=== PATIENT | male | born 1965 | race Caucasian/White ===

== ENCOUNTER 2016-07-27 11:39 | Day surgery (SDC) | payer BC ==
[2016-07-23 09:35] VITALS: BMI 35.9
[~2016-07-27 11:39] MED LIST: LIDOCAINE 1% 20 ML VIAL (10MG/ML) FOR IV START INTRADERMA PRN
[2016-07-27] MEDS ORDERED: LIDOCAINE 1% 20 ML VIAL (10MG/ML) FOR IV START INTRADERMA ONE (12:22)
[2016-07-27] MEDS: LACTATED RINGERS 1,000 ML IV SCH ×2 (12:22→12:42)
[2016-07-27 12:24] VITALS: RESP 18; TEMP 98.5
[2016-07-27] MEDS ORDERED: PROPOFOL 10 MG/ML 20 ML VIAL IV ONE (12:44)
[2016-07-27] MEDS ORDERED: LIDOCAINE 1% INJ 10MG/ML (20 ML MDV) ONE (12:44)
[2016-07-27 13:44] VITALS: BP 113/67; PULSE 74
--- NOTE | 2016-07-27 13:55 | P.PCN ---
Date of Procedure: 07/27/16 Procedure(s) Performed: Procedure: Total colonoscopy. Preoperative diagnosis: Screening for neoplasia. Postoperative diagnosis: Diverticulosis with no evidence of acute diverticulitis , strictures, polyps or cancer. Preparation: HalfLytely prep. Sedation: Was provided by anesthesia. Brief clinical history: The patient is a 50-year-old male who is referred for this evaluation for screening for neoplasia. He had a bout of diverticulitis around 1 year ago. At this time, he has no abdominal complaints, bleeding or anemia. No family history of colon cancer. This would be his first colonoscopy. Procedure: With the patient on his left lateral decubitus position and after informed consent and adequate sedation, the perianal area was inspected and it did not show any fissures or fistulas. There were no masses felt on digital rectal examination. The Olympus CFQ 160L video colonoscope was then inserted in the rectum in the usual fashion and advanced to the cecum. There were multiple diverticular orifices seen scattered along the length of the bowel mostly on the left side and sigmoid with no evidence of acute diverticulitis or strictures. The mucosa appeared healthy with occasional small areas of submucosal hemorrhage in the vicinity of diverticular orifices that could indicate a prior bout of diverticulitis. No polyps or tumors were seen. I retroflexed the endoscope in the rectum before the endoscope was withdrawn. The patient tolerated the procedure well. Plan: The patient was reassured. Discussed dietary measures. In the absence of family history of colon cancer or finding of polyps today, I recommended repeat exam in 10 years. He will follow up with you as planned.
== END 2016-07-27 14:20 | disposition home or self-care (01) ==
LOC: ORWHC2ENDO 11:39
DX: Z12.11 Encounter for screening for malignant neoplasm of colon (principal); K57.30 Diverticulosis of large intestine without perforation or abscess without bleeding; I10 Essential (primary) hypertension; E78.5 Hyperlipidemia, unspecified; Z79.82 Long term (current) use of aspirin; Z79.899 Other long term (current) drug therapy; Z87.891 Personal history of nicotine dependence
CPT/HCPCS: J2001; J2704; G0121

== ENCOUNTER → 2016-09-25 | Outpatient (CLI) | payer BC ==
[2016-09-25 08:32] LABS: ALT 56 U/L (21-72); AST 41 U/L (17-59); Alkaline Phosphatase 48 U/L (38-126); Anion Gap 6 mmol/L; Blood Urea Nitrogen 12 mg/dL (9-20); Calcium 9.7 mg/dL (8.4-10.2); Carbon Dioxide 30 mmol/L (22-30); Chloride 108 mmol/L (98-107); Cholesterol 146 mg/dL (<200); Creatine Kinase 420 U/L (55-170); Glucose 89 mg/dL (74-99); HDL Cholesterol 51 mg/dL (40-60); Non-African American GFR(MDRD) >60 (>60 ml/min/1.73 sqM); Potassium 4.6 mmol/L (3.5-5.1); Sodium 144 mmol/L (137-145); Total Bilirubin 1.4 mg/dL (0.2-1.3); Total Protein 7.5 g/dL (6.3-8.2); Triglycerides 74 mg/dL (<150)
== END | disposition home or self-care (01) ==
LOC: LABWHC1 07:31
PROVIDERS: ATTEND Internal Medicine Interventional Cardiology
DX: E78.2 Mixed hyperlipidemia (principal)
CPT/HCPCS: 36415; 80053; 80061; 82550

== ENCOUNTER → 2017-02-16 | Outpatient (CLI) | payer BC ==
[2017-02-16 08:18] LABS: ALT 63 U/L (21-72); AST 42 U/L (17-59); Alkaline Phosphatase 47 U/L (38-126); Anion Gap 10 mmol/L; Blood Urea Nitrogen 16 mg/dL (9-20); Calcium 9.6 mg/dL (8.4-10.2); Carbon Dioxide 28 mmol/L (22-30); Chloride 103 mmol/L (98-107); Cholesterol 141 mg/dL (<200); Glucose 99 mg/dL (74-99); HDL Cholesterol 50 mg/dL (40-60); Non-African American GFR(MDRD) >60 (>60 ml/min/1.73 sqM); Potassium 4.5 mmol/L (3.5-5.1); Sodium 141 mmol/L (137-145); Total Bilirubin 0.4 mg/dL (0.2-1.3)
== END | disposition home or self-care (01) ==
LOC: LABWHC1 07:10
PROVIDERS: ATTEND Internal Medicine Interventional Cardiology
DX: E78.2 Mixed hyperlipidemia (principal); I10 Essential (primary) hypertension
CPT/HCPCS: 36415; 80053; 80061; 84443

== ENCOUNTER → 2017-08-26 | Outpatient (CLI) | payer BC ==
[2017-08-26 09:03] LABS: ALT 61 U/L (21-72); AST 42 U/L (17-59); Cholesterol 163 mg/dL (<200); HDL Cholesterol 52 mg/dL (40-60); LDL Cholesterol,Calculated 89 mg/dL (0-99); Triglycerides 108 mg/dL (<150)
== END | disposition home or self-care (01) ==
LOC: LABWHC1 08:27
PROVIDERS: ATTEND Internal Medicine Interventional Cardiology
DX: E78.2 Mixed hyperlipidemia (principal)
CPT/HCPCS: 36415; 80061; 84450; 84460

== ENCOUNTER → 2018-03-04 | Outpatient (CLI) | payer BC ==
[2018-03-04 17:00] LABS: Albumin 4.7 g/dL (3.80-4.90); Albumin/Globulin Ratio 2.61 (1.20-2.10); Anion Gap 6.9 mmol/L (4.00-12.00); Calcium 9.4 mg/dL (8.7-10.3); Carbon Dioxide 27.1 mmol/L (21.6-31.8); Globulin 1.8 g/dL (2.1-3.7); Potassium 4.5 mmol/L (3.5-5.5); Total Bilirubin 0.6 mg/dL (0.3-1.2); Total Protein 6.5 g/dL (6.2-8.2)
== END | disposition home or self-care (01) ==
LOC: LABWHC1 08:26
PROVIDERS: ATTEND Internal Medicine Interventional Cardiology
DX: E78.2 Mixed hyperlipidemia (principal)
CPT/HCPCS: 36415; 80053; 80061

== ENCOUNTER → 2018-06-13 | Outpatient (CLI) | payer BC ==
--- NOTE | 2018-06-14 05:45 | CONS ---
CONSULTATION REASON FOR CONSULT: Sleep apnea 52-year-old male patient with suspected obstructive sleep apnea. For that reason, he was referred to me. I know this patient's mother who used to be one of my patients and she has been diagnosed with scleroderma and lung cancer, around 2 years ago. She did not have any sleep apnea. This patient is obese. He has a BMI of 42, and he feels tired and sleepy all the time. His current Fremont score is at 11. He has gained weight in the order of 40 pounds over the past 10 years. He snores and he stops breathing and this has been reported by family members. He has been tired and sleepy for the past 4 years. At times, he has woken up panicking and gasping for air with tachycardia. Note that he has been diagnosed having palpitation and tachycardia. There is questionable history of paroxysmal atrial fibrillation. Yet his current rhythm is sinus. He has hypertension, hyperlipidemia as comorbid conditions. He goes to bed around 10 o'clock. Wakes up at 5 a.m. in the morning. He feels tired and sleepy during the day. He is a nose breather. He wakes up with dry mouth. His sleep is fragmented and wakes up a few times in the middle of the night to use the bathroom. No sleep paralysis. No hallucinations. No cataplexy. PAST MEDICAL HISTORY: 1. Palpitations, tachycardia and questionable history of paroxysmal atrial fibrillation. Although I am not certain. 2. Hypertension. 3. Hyperlipidemia. 4. Obesity. PAST SURGICAL HISTORY: Includes rotator cuff surgery. Cyst removed from the lower back and colonoscopy. DRUG ALLERGIES: Not known. OUTPATIENT MEDICATION LIST: Includes: 1. Lisinopril 10 mg p.o. daily. Hydrochlorothiazide 25 mg p.o. daily. Atorvastatin 5 mg p.o. daily. 2. Oren aspirin 325 mg p.o. daily. SOCIAL HISTORY: The patient is a nonsmoker, no history of alcohol, no history of IV drugs. FAMILY HISTORY: Negative for sleep apnea. Positive for scleroderma. REVIEW OF SYSTEMS: The patient has issues with breathing. 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 He quit smoking 12 years ago and is currently a nonsmoker. Never the less, on and off, he feels some cough and congestion. He has had a few bouts of pneumonias. He is requesting a pulmonary consultation at later stage. No angina. No chest pain. No heartburn. No nausea or vomiting. There is chronic anxiety and some degree of depression. No claustrophobia. No issues with memory and concentration. He is not falling asleep during day-to-day activities. No active palpitation for now although he has had it in the past. No grinding of the teeth. PHYSICAL EXAMINATION: BP is 144/93, pulse 87, respirations 16, temperature 98.4, saturation 97% on room air. Weight is 284. Height is 5 feet 9 inches. Neck size is 18 and quarter of an inch. BMI is 42.0. General appearance: Calm, comfortable. Head atraumatic, normocephalic. NECK: Supple. No JVD. No goiter or neck masses. Mallampati class IV. LUNGS: Clear to auscultation. HEART: Sounds regular rate and rhythm. Normal S1, S2. No S3. No murmurs. ABDOMEN: Soft, nontender. No organomegaly. EXTREMITIES: No edema. No cyanosis or clubbing. Neurologically: He is alert and oriented x3. No focal neurological deficits. PSYCHIATRIC: Negative for anxiety or depression at this point in time. IMPRESSION: 1. Hypersomnia under investigation Fremont score is 11. The patient snores and has witnessed apneas. Rule out underlying obstructive sleep apnea. 2. Obesity with a BMI of 42. 3. Hypertension. 4. Hyperlipidemia. PLAN: 1. Encourage weight loss. 2. Implement good sleep hygiene measures. 3. Proceed with a sleep study looking for any significant sleep breathing disorder. 4. The patient will see me back in followup at the [facility] to discuss the results of the sleep study and at the same time have a pulmonary evaluation knowing that he has some shortness of breath and recurrent bouts of pneumonias suspecting underlying asthma/COPD. MMODL / IJN: [id number] /
== END | disposition home or self-care (01) ==
LOC: SLEEP 15:33
PROVIDERS: ATTEND Internal Medicine Critical Care Medicine
DX: G47.10 Hypersomnia, unspecified (principal); E66.9 Obesity, unspecified; I10 Essential (primary) hypertension; E78.5 Hyperlipidemia, unspecified; Z68.41 Body mass index [BMI] 40.0-44.9, adult; Z79.899 Other long term (current) drug therapy; Z79.82 Long term (current) use of aspirin
CPT/HCPCS: 99211

== ENCOUNTER → 2018-09-02 | Outpatient (CLI) | payer BC ==
[2018-09-02 17:33] LABS: Albumin 4.8 g/dL (3.80-4.90); Albumin/Globulin Ratio 2.4 (1.60-3.17); Anion Gap 4.8 mmol/L (4.00-12.00); Calcium 9.8 mg/dL (8.7-10.3); Carbon Dioxide 28.2 mmol/L (21.6-31.8); Potassium 4.4 mmol/L (3.5-5.5); Total Bilirubin 0.8 mg/dL (0.2-1.2); Total Protein 6.8 g/dL (6.2-8.2)
== END | disposition home or self-care (01) ==
LOC: LABWHC1 08:38
PROVIDERS: ATTEND Internal Medicine Interventional Cardiology
DX: E78.2 Mixed hyperlipidemia (principal)
CPT/HCPCS: 36415; 80053; 80061

== ENCOUNTER → 2019-03-03 | Outpatient (CLI) | payer BC ==
[2019-03-03 17:44] LABS: Chol/HDL Ratio 3.24; LDL Cholesterol,Calculated 82.6 mg/dL (0.0-131.0); VLDL Calculation 18.4 mg/dL (5.00-40.00)
== END | disposition home or self-care (01) ==
LOC: LABWHC1 08:18
PROVIDERS: ATTEND Internal Medicine Interventional Cardiology
DX: E78.2 Mixed hyperlipidemia (principal)
CPT/HCPCS: 36415; 80061; 84450; 84460

== ENCOUNTER → 2019-11-06 | Outpatient (CLI) | payer BC ==
[2019-11-06 13:14] LABS: African American GFR (CKD) 89.6 (60.0-200.0); Albumin 4.6 g/dL (3.80-4.90); Albumin/Globulin Ratio 2.19 (1.60-3.17); Anion Gap 11.4 mmol/L (4.00-12.00); BUN/Creat Ratio 18.18 Ratio (12.00-20.00); Calcium 9.7 mg/dL (8.7-10.3); Carbon Dioxide 27.6 mmol/L (21.6-31.8); Chol/HDL Ratio 3.21; Globulin 2.1 g/dL (1.6-3.3); Non-African American GFR(CKD) 77.3 (60.0-200.0); Potassium 4.2 mmol/L (3.5-5.5); Total Bilirubin 0.9 mg/dL (0.2-1.2); Total Protein 6.7 g/dL (6.2-8.2)
== END | disposition home or self-care (01) ==
LOC: LABWHC1 07:22
PROVIDERS: ATTEND Nurse Practitioner Adult Health
DX: E78.2 Mixed hyperlipidemia (principal); I10 Essential (primary) hypertension
CPT/HCPCS: 36415; 80053; 80061

== ENCOUNTER → 2020-06-13 | Outpatient (CLI) | payer BC ==
[2020-06-13 15:46] LABS: African American GFR (CKD) 99.8 (60.0-200.0); Albumin 4.7 g/dL (3.80-4.90); Albumin/Globulin Ratio 2.76 (1.60-3.17); Anion Gap 5.4 mmol/L (4.00-12.00); Calcium 9.3 mg/dL (8.7-10.3); Carbon Dioxide 28.6 mmol/L (21.6-31.8); Chol/HDL Ratio 3.32; Globulin 1.7 g/dL (1.6-3.3); LDL Cholesterol,Calculated 87.8 mg/dL (0.0-131.0); Non-African American GFR(CKD) 86.2 (60.0-200.0); Potassium 4.2 mmol/L (3.5-5.5); Total Bilirubin 0.7 mg/dL (0.3-1.2); Total Protein 6.4 g/dL (6.2-8.2); VLDL Calculation 21.2 mg/dL (5.00-40.00)
== END | disposition home or self-care (01) ==
LOC: LABWHC1 08:00
PROVIDERS: ATTEND Internal Medicine Interventional Cardiology
DX: E78.2 Mixed hyperlipidemia (principal)
CPT/HCPCS: 36415; 80053; 80061

== ENCOUNTER → 2021-01-10 | Outpatient (CLI) | payer BC ==
[2021-01-10 20:11] LABS: African American GFR (CKD) 112.6 (60.0-200.0); Albumin 4.7 g/dL (3.80-4.90); Albumin/Globulin Ratio 2.04 (1.60-3.17); Anion Gap 12.2 mmol/L (4.00-12.00); BUN/Creat Ratio 18.89 Ratio (12.00-20.00); Calcium 9.8 mg/dL (8.7-10.3); Carbon Dioxide 24.8 mmol/L (21.6-31.8); Chol/HDL Ratio 2.76; Globulin 2.3 g/dL (1.6-3.3); LDL Cholesterol,Calculated 77.8 mg/dL (0.0-131.0); Non-African American GFR(CKD) 97.2 (60.0-200.0); Potassium 4.1 mmol/L (3.5-5.5); Total Bilirubin 0.9 mg/dL (0.2-1.2); VLDL Calculation 19.2 mg/dL (5.00-40.00)
== END | disposition home or self-care (01) ==
LOC: LABWHC1 08:19
PROVIDERS: ATTEND Internal Medicine Interventional Cardiology
DX: E78.2 Mixed hyperlipidemia (principal)
CPT/HCPCS: 36415; 80053; 80061

== ENCOUNTER → 2021-06-30 | Outpatient (CLI) | payer BC ==
[2021-06-30 10:47] LABS: ALT 55 U/L (10-49); AST 33 U/L (14-35); Chol/HDL Ratio 3.59 Ratio; LDL Cholesterol,Calculated 73.1 mg/dL (0.0-131.0)
== END | disposition home or self-care (01) ==
LOC: LABWHC1 07:19
PROVIDERS: ATTEND Internal Medicine Interventional Cardiology
DX: E78.2 Mixed hyperlipidemia (principal)
CPT/HCPCS: 36415; 80061; 84450; 84460

== ENCOUNTER → 2022-01-08 | Outpatient (CLI) | payer BC ==
[2022-01-08 11:40] LABS: ALT 47 U/L (10-49); AST 38 U/L (14-35); African American GFR (CKD) 98.5 (60.0-200.0); Albumin 4.6 g/dL (3.8-4.9); Albumin/Globulin Ratio 1.84 (1.60-3.17); Alkaline Phosphatase 52 U/L (41-126); Blood Urea Nitrogen 12.6 mg/dL (9.0-27.0); Carbon Dioxide 28.4 mmol/L (20.0-27.5); Chloride 103 mmol/L (96-109); Chol/HDL Ratio 3.13 Ratio; Globulin 2.5 g/dL (1.6-3.3); Glucose 96 mg/dL (70-110); LDL Cholesterol,Calculated 81.1 mg/dL (0.0-131.0); Non-African American GFR(CKD) 84.9 (60.0-200.0); Potassium 4.4 mmol/L (3.5-5.5); Sodium 142 mmol/L (135-145); Total Protein 7.1 g/dL (6.2-8.2)
== END | disposition home or self-care (01) ==
LOC: LABWHC1 07:04
PROVIDERS: ATTEND Internal Medicine Interventional Cardiology
DX: E78.2 Mixed hyperlipidemia (principal)
CPT/HCPCS: 36415; 80053; 80061

== ENCOUNTER 2022-01-22 05:42 | Day surgery (SDC) | payer BC ==
[2022-01-21 10:09] VITALS: BMI 41.5
[2022-01-22] MEDS ORDERED: NITROGLYCERIN SL TABS 0.4 MG TAB SUBLINGUAL PRN (05:53)
[2022-01-22] MEDS ORDERED: ALPRAZolam 0.5 MG TAB PO PRN (05:53)
[2022-01-22] MEDS ORDERED: SODIUM CHLORIDE 0.9% 1,000 ML in EMPTY BAG 1 BAG IV SCH (05:53)
[2022-01-22] MEDS ORDERED: ALPRAZolam 0.25 MG TAB PO PRN (05:53)
[2022-01-22] MEDS ORDERED: SODIUM CHLORIDE 0.9% 1,000 ML IV ONE (06:09)
[2022-01-22 06:30] VITALS: RESP 16; TEMP 98.8
[2022-01-22 06:38] LABS: Basophils # (A) 0.1 k/uL (0-0.2); Basophils % (A) 1 %; Eosinophils # (A) 0.3 k/uL (0-0.7); Eosinophils % (A) 4 %; HCT 42.2 % (39.0-53.0); Lymphocytes # (A) 2.1 k/uL (1.0-4.8); Lymphocytes % (A) 24 %; MCH 30.8 pg (25.0-35.0); MCHC 33.2 g/dL (31.0-37.0); MCV 92.9 fL (80.0-100.0); Mean Platelet Volume 8.7; Monocytes # (A) 0.6 k/uL (0-1.0); Monocytes % (A) 6 %; Neutrophils # (A) 5.4 k/uL (1.3-7.7); Neutrophils % (A) 62 %; Platelet Count 216 k/uL (150-450); RBC 4.55 m/uL (4.30-5.90); RDW 12.6 % (11.5-15.5); WBC 8.7 k/uL (3.8-10.6)
[2022-01-22] MEDS ORDERED: ASPIRIN 325 MG TAB PO ONE (07:00)
[2022-01-22] MEDS ORDERED: VERAPAMIL 2.5 MG/ML 2 ML AMP ONE (07:18)
[2022-01-22] MEDS ORDERED: fentaNYL (PF) 50 MCG/ML 2 ML AMP ONE (07:28)
[2022-01-22] MEDS ORDERED: HEPARIN SODIUM 1,000 UN/ML (10ML VL) ONE (07:28)
[2022-01-22] MEDS ORDERED: fentaNYL (PF) 50 MCG/ML 2 ML AMP IVP ONE ×2 (07:35→07:42)
[2022-01-22] MEDS ORDERED: MIDAZOLAM 2 MG/2 ML VIAL IVP ONE (07:40)
[2022-01-22] MEDS ORDERED: LIDOCAINE 1% INJ 10MG/ML (30 ML VIAL-PF) SQ ONE (07:40)
[2022-01-22] MEDS ORDERED: VERAPAMIL SYRINGE (5 MG/10 ML) INTRAARTER ONE (07:42)
[2022-01-22] MEDS ORDERED: HEPARIN SODIUM 1,000 UN/ML (10ML VL) IVP ONE (07:47)
[2022-01-22] MEDS ORDERED: IOPAMIDOL-370 125ML BTL INJ ONE (07:55)
[2022-01-22] MEDS ORDERED: RX INFO: IV CONTRAST WAS GIVEN 1 EACH MISC MISCELLANE PRN (08:10)
[2022-01-22] MEDS ORDERED: SODIUM CHLORIDE 0.9% 1,000 ML IV SCH (08:15)
--- NOTE | 2022-01-22 08:16 | P.CARDCATH ---
Date of Procedure: 01/22/22 Description of Procedure: Cardiac Catheterization: The patient is a 56-year-old male with a known history of hypertension, hyperlipidemia who has been complaining of dyspnea and recently was found to have evidence of cardiomyopathy and ventricular ectopic activity. Recommendations were made regarding cardiac catheterization, the risks and the complications were discussed with the patient who is in full understanding and agreement. Procedure Description: Patient was brought to track repair laborer in fasting semi-sedated state after receiving Fentanyl and Benadryl achieiving moderate conscious sedated state. Using Xylocaine Anesthesia and Seldinger technique, a 6-Senegalese sheath was introduced in the right radial artery . Subsequently, selective coronary angiography was performed using a 5-Senegalese 3.5 bend Ernestine catheter. Multiple views of the coronary artery including hemiaxial views were obtained. The 5-Senegalese pigatail catheter was used to cross the aortic valve and LVEDP was calculated. Left ventriculogram was performed in the PAPPAS view. Following that, catheter and sheath were removed. Hemostasis was obtained with deployment of TR band . There was no immediate complication. Patient was returned to room in stable condition. Of note, the patient received a total of 5000 units of intravenous heparin as well as intra-arterial verapamil. Findings: Left main: This is a large size vessel, bifurcating into LAD and left circumflex, left main has no high-grade stenosis LAD: This is a large size vessel, tapers in the distal third, giving rise to a large proximal diagonal branch, the LAD and its branches have no evidence of high-grade stenosis Left circumflex: This is a codominant vessel, giving rise to 2 obtuse marginal branch, the second one is large in caliber, distally giving rise to a small PDA and PLV that had no evidence of high-grade stenosis RCA: This is a codominant large size vessel bifurcating distally PDA and PLV, the RCA and its branches have no evidence of high-grade stenosis Left Ventriculogram: Performed in the PAPPAS view revealed global hypokinesis, ejection fraction is 40-45%. There was 2+ mitral regurgitation Hemodynamics: There was no gradient across the aortic valve , LVEDP was 20-25 mmHg Conclusion: 1. Normal coronary arteries 2. Codominant system 3. Moderately impaired left ventricle systolic function 4. Elevated LVEDP Recommendations: The patient has nonischemic cardiomyopathy, I have recommended to maximize his medical therapy and depending on his progress further recommendations will be made.. The findings and the recommendations were discussed with the patient and the family and they were in full understanding and agreement. Duration of sedation is 18 minutes.
[2022-01-22] MEDS ORDERED: ATORVASTATIN 10 MG TAB PO SCH (12:00)
[2022-01-22 13:05] VITALS: BP 137/74; PULSE 55
[2022-01-22] MEDS ORDERED: METOPROLOL TARTRATE 25 MG TAB PO SCH (21:00)
[2022-01-23] MEDS ORDERED: hydroCHLOROthiazide 25 MG TAB PO SCH (09:00)
[2022-01-23] MEDS ORDERED: lisinopriL 10 MG TAB PO SCH (09:00)
[2022-01-23] MEDS ORDERED: MULTIVITAMINS, THERA 1 EACH TAB PO SCH (09:00)
== END 2022-01-22 12:01 | disposition home or self-care (01) ==
LOC: CATHCVL 05:42
PROVIDERS: ATTEND Internal Medicine Interventional Cardiology
DX: R07.89 Other chest pain (principal); R06.00 Dyspnea, unspecified; R53.83 Other fatigue; I42.8 Other cardiomyopathies; I10 Essential (primary) hypertension; Z20.822 Contact with and (suspected) exposure to COVID-19; E78.2 Mixed hyperlipidemia; R94.31 Abnormal electrocardiogram [ECG] [EKG]; Z86.16 Personal history of COVID-19; Z98.890 Other specified postprocedural states; Z87.891 Personal history of nicotine dependence; I49.3 Ventricular premature depolarization; Z79.82 Long term (current) use of aspirin; Z79.899 Other long term (current) drug therapy
CPT/HCPCS: 93458; 85025; 87635; C1769 ×2; C1894; J2250; J2001; J3010; J1644; Q9967

== ENCOUNTER → 2022-02-18 | Outpatient (CLI) | payer BC ==
--- NOTE | 2022-02-19 09:00 | CT ---
EXAMINATION TYPE: CT soft tissue neck w con DATE OF EXAM: 02/18/2022 HISTORY: HOARSE VOICE AND POST COVID COMPARISON: NONE CT DLP: 909 mGycm. Automated Exposure Control for Dose Reduction was Utilized. TECHNIQUE: CT scan of the neck is performed with IV Contrast, patient injected with 100 mL of Isovue 300, axial images are obtained, coronal and sagittal reformatted images are reviewed. FINDINGS: Airway: No gross abnormality seen. Parotid/submandibular glands: No gross abnormality seen. Carotid/Vascular Structures: Mild peripheral calcified plaque posterior aspect of proximal bilateral internal carotid arteries. Osseous Structures: Reversal of normal cervical curvature centered at C4 level. Left paracentral disk protrusion effaces anterior thecal sac on axial image 43. Scoliotic curvature is seen on coronal im ages. Other: Scattered subcentimeter lymph nodes throughout the neck bilaterally, no greater then 1cm lymph nodes are seen. IMPRESSION: No suspicious mass or enlarged adenopathy. Patent airway.
== END | disposition home or self-care (01) ==
LOC: RADCTMAIN 16:15
PROVIDERS: ATTEND Internal Medicine Critical Care Medicine
DX: R49.0 Dysphonia (principal)
CPT/HCPCS: 70491; Q9967

== ENCOUNTER → 2022-02-20 | Outpatient (CLI) | payer BC ==
--- NOTE | 2022-02-20 14:29 | CT ---
CT CHEST FOR PULMONARY EMBOLISM. EXAMINATION TYPE: CT angio chest DATE OF EXAM: 02/20/2022 INDICATION: SOB CT DLP: 644.7 mGycm, Automated exposure control for dose reduction was used. CONTRAST: Patient injected with 100cc mL of Isovue 370. COMPARISON: TECHNIQUE: CT of the chest is performed on a spiral scan at 2 mm thick sections. Study is performed with intravenous contrast timed for evaluation for pulmonary embolism. This will limit additional po rtions of the evaluation. 3-D MIP images reconstructed by the technologist are reviewed on the compu ter in the coronal and sagittal planes. FINDINGS: No persistent filling defects are evident to suggest an acute pulmonary embolism. No mediastinal or hilar adenopathy enlarged by CT criteria is evident. The ascending aorta diameter at the level of the main pulmonary artery is 3.6 cm. The main pulmonary artery diameter at the bifur cation is 2.9 cm. Lung windows are clear. Tracheobronchial tree appears clear. Limited CT section through the upper abdomen are unremarkable. IMPRESSIONS: 1. No acute pulmonary embolism. 2. No acute pulmonary process.
== END | disposition home or self-care (01) ==
LOC: RADCTMAIN 08:00
PROVIDERS: ATTEND Internal Medicine Critical Care Medicine
DX: R06.02 Shortness of breath (principal)
CPT/HCPCS: 71275; Q9967

== ENCOUNTER → 2022-05-21 | Outpatient (CLI) | payer BC ==
[2022-05-21 11:38] LABS: ALT 62 U/L (10-49); AST 38 U/L (14-35); African American GFR (CKD) 92.8 (60.0-200.0); Albumin 4.7 g/dL (3.8-4.9); Albumin/Globulin Ratio 2.12 (1.60-3.17); Alkaline Phosphatase 58 U/L (41-126); BUN/Creat Ratio 13.14 Ratio (12.00-20.00); Blood Urea Nitrogen 13.8 mg/dL (9.0-27.0); Calcium 9.9 mg/dL (8.7-10.3); Carbon Dioxide 28.4 mmol/L (20.0-27.5); Chloride 102 mmol/L (96-109); Chol/HDL Ratio 3.44 Ratio; Globulin 2.2 g/dL (1.6-3.3); Glucose 106 mg/dL (70-110); LDL Cholesterol,Calculated 83.1 mg/dL (0.0-131.0); Non-African American GFR(CKD) 80.1 (60.0-200.0); Potassium 4.8 mmol/L (3.5-5.5); Sodium 141 mmol/L (135-145)
== END | disposition home or self-care (01) ==
LOC: LABWHC1 06:59
PROVIDERS: ATTEND Internal Medicine Interventional Cardiology
DX: E78.2 Mixed hyperlipidemia (principal)
CPT/HCPCS: 36415; 80053; 80061

== ENCOUNTER → 2022-10-06 | Outpatient (CLI) | payer BC ==
[2022-10-06 15:54] LABS: ALT 39 U/L (10-49); AST 30 U/L (14-35); Albumin 4.6 d/dL (3.8-4.9); Albumin/Globulin Ratio 2.09 Ratio (1.60-3.17); Alkaline Phosphatase 56 U/L (41-126); BUN/Creat Ratio 13.36 Ratio (12.00-20.00); Blood Urea Nitrogen 14.7 mg/dL (9.0-27.0); Carbon Dioxide 26.8 mmol/L (21.6-31.8); Chloride 105 mmol/L (96-109); Chol/HDL Ratio 3.45 Ratio; Globulin 2.2 d/dL (1.6-3.3); Glucose 99 mg/dL (70-110); LDL Cholesterol,Calculated 81.4 mg/dL (0.0-131.0); Potassium 4.5 mmol/L (3.5-5.5); Sodium 143 mmol/L (135-145); Total Bilirubin 0.4 mg/dL (0.3-1.2); Total Protein 6.8 d/dL (6.2-8.2); VLDL Calculation 19.38 mg/dL (5.00-40.00)
== END | disposition home or self-care (01) ==
LOC: LABWHC1 07:13
PROVIDERS: ATTEND Internal Medicine Interventional Cardiology
DX: E78.2 Mixed hyperlipidemia (principal)
CPT/HCPCS: 36415; 80053; 80061

== ENCOUNTER → 2023-04-15 | Outpatient (CLI) | payer BC ==
[2023-04-15 19:04] LABS: Basophils # (A) 0.11 X 10*3/uL (0.00-0.10); Eosinophils # (A) 0 X 10*3/uL (0.04-0.35); Eosinophils % (A) 0 %; HCT 47.7 % (39.6-50.0); HGB 15.9 g/dL (13.0-17.0); Lymphocytes # (A) 2.36 X 10*3/uL (0.90-5.00); Lymphocytes % (A) 20.6 %; MCH 31.1 pg (27.0-32.0); MCHC 33.3 g/dL (32.0-37.0); MCV 93.3 FL (80.0-97.0); Mean Platelet Volume 10.7 FL (9.5-12.2); Monocytes % (A) 7.9 %; NRBC Per 100 WBC 0 X 10*3/uL (0.00-0.01); Neutrophils # (A) 7.95 X 10*3/uL (1.80-7.70); Neutrophils % (A) 69.5 %; Platelet Count 244 X 10*3/uL (140-440); RBC 5.11 X 10*6/uL (4.40-5.60); WBC 11.44 X 10*3/uL (4.50-10.00)
[2023-04-15 19:15] LABS: Immunoglobulin E 26.5 IU/mL (0.00-114.00)
[2023-04-15 19:29] LABS: Immunoglobulin M 60.5 mg/dL (40.0-280.0)
== END | disposition home or self-care (01) ==
LOC: LABWHC1 12:20
PROVIDERS: ATTEND Otolaryngology
DX: D84.9 Immunodeficiency, unspecified (principal); R53.83 Other fatigue
CPT/HCPCS: 36415; 82784; 82785; 85025

== ENCOUNTER → 2023-05-04 | Outpatient (CLI) | payer BC ==
[2023-05-04 15:45] LABS: Basophils # (A) 0.09 X 10*3/uL (0.00-0.10); Basophils % (A) 0.7 %; Eosinophils # (A) 0 X 10*3/uL (0.04-0.35); Eosinophils % (A) 0 %; HCT 45.4 % (39.6-50.0); HGB 15.3 g/dL (13.0-17.0); Lymphocytes # (A) 1.34 X 10*3/uL (0.90-5.00); Lymphocytes % (A) 9.8 %; MCH 31.5 pg (27.0-32.0); MCHC 33.7 g/dL (32.0-37.0); MCV 93.6 FL (80.0-97.0); Mean Platelet Volume 11.2 FL (9.5-12.2); Monocytes # (A) 0.52 X 10*3/uL (0.20-1.00); Monocytes % (A) 3.8 %; NRBC Per 100 WBC 0 X 10*3/uL (0.00-0.01); Neutrophils # (A) 11.64 X 10*3/uL (1.80-7.70); Neutrophils % (A) 84.8 %; Platelet Count 200 X 10*3/uL (140-440); RBC 4.85 X 10*6/uL (4.40-5.60); RDW 13.2 % (11.5-14.5); WBC 13.71 X 10*3/uL (4.50-10.00)
== END | disposition home or self-care (01) ==
LOC: LABWHC1 11:54
PROVIDERS: ATTEND Otolaryngology
DX: D72.829 Elevated white blood cell count, unspecified (principal)
CPT/HCPCS: 36415; 85025

== ENCOUNTER → 2023-05-25 | Outpatient (CLI) | payer BC ==
[2023-05-26 03:46] LABS: Basophils # (A) 0.08 X 10*3/uL (0.00-0.10); Basophils % (A) 0.8 %; Eosinophils # (A) 0.18 X 10*3/uL (0.04-0.35); Eosinophils % (A) 1.7 %; HCT 44.2 % (39.6-50.0); HGB 14.7 g/dL (13.0-17.0); Lymphocytes # (A) 2.44 X 10*3/uL (0.90-5.00); Lymphocytes % (A) 23.2 %; MCH 30.8 pg (27.0-32.0); MCHC 33.3 g/dL (32.0-37.0); MCV 92.7 FL (80.0-97.0); Mean Platelet Volume 11.4 FL (9.5-12.2); Monocytes % (A) 5.7 %; NRBC Per 100 WBC 0 X 10*3/uL (0.00-0.01); Neutrophils # (A) 7.17 X 10*3/uL (1.80-7.70); Platelet Count 204 X 10*3/uL (140-440); RBC 4.77 X 10*6/uL (4.40-5.60); RDW 13.2 % (11.5-14.5); WBC 10.53 X 10*3/uL (4.50-10.00)
== END | disposition home or self-care (01) ==
LOC: LABWHC1 12:54
PROVIDERS: ATTEND Otolaryngology
DX: D72.829 Elevated white blood cell count, unspecified (principal)
CPT/HCPCS: 36415; 85025

== ENCOUNTER → 2023-05-30 | Outpatient (CLI) | payer BC ==
[2023-05-30 15:50] LABS: T4, Free (Free Thyroxine) 1.22 ng/dL (0.80-1.80)
== END | disposition home or self-care (01) ==
LOC: LABWHC1 12:01
PROVIDERS: ATTEND Otolaryngology
DX: M54.2 Cervicalgia (principal)
CPT/HCPCS: 36415; 84439; 84443; 86376

== ENCOUNTER → 2023-06-29 | Outpatient (CLI) | payer BC ==
--- NOTE | 2023-06-29 10:24 | FL ---
ESOPHOGRAM. HISTORY: Dysphagia Esophagram was performed per the air contrast technique. The patient swallowed barium and effervesce nt crystals without difficulty or delay. Esophageal peristalsis and motility appear to be within normal limits. There is no evidence for filling defect, mass or diverticulum. No hiatal hernia seen. Subsequently single contrast cervical esophagram was performed which fails demonstrate evidence for a spiration penetration or mass. IMPRESSION: Unremarkable study.
== END | disposition home or self-care (01) ==
LOC: RADUSWWP 09:35
PROVIDERS: ATTEND Otolaryngology
DX: R13.19 Other dysphagia (principal)
CPT/HCPCS: 74220

== ENCOUNTER → 2023-07-21 | Outpatient (CLI) | payer BC ==
[2023-07-21 11:31] LABS: ALT 36 U/L (10-49); AST 24 U/L (14-35); LDL Cholesterol,Calculated 60.4 mg/dL (0.0-131.0); VLDL Calculation 17.54 mg/dL (5.00-40.00)
== END | disposition home or self-care (01) ==
LOC: LABWHC1 07:26
PROVIDERS: ATTEND Internal Medicine
DX: J02.0 Streptococcal pharyngitis (principal); E78.2 Mixed hyperlipidemia
CPT/HCPCS: 36415; 80061; 84450; 84460; 86162

== ENCOUNTER → 2023-07-27 | Outpatient (CLI) | payer BC ==
[2023-07-27 15:52] LABS: Rheumatoid Factor, Qnt <15 IU/mL (0-15); T4, Free (Free Thyroxine) 1.23 ng/dL (0.80-1.80)
[2023-07-27 16:05] LABS: Thyroid Peroxidase Antibodies <9.0 U/mL (0.0-33.0)
== END | disposition home or self-care (01) ==
LOC: LABWHC1 10:30
PROVIDERS: ATTEND Otolaryngology
DX: R07.0 Pain in throat (principal); R53.83 Other fatigue
CPT/HCPCS: 36415; 84439; 84443; 86038; 86376; 86431

== ENCOUNTER → 2023-08-10 | Outpatient (CLI) | payer BC ==
[2023-08-10 14:56] LABS: African American GFR (CKD) >90 (>60 ml/min/1.73 sqM); Blood Urea Nitrogen 15 mg/dL (9-20); Non-African American GFR(CKD) >90 (>60 ml/min/1.73 sqM)
--- NOTE | 2023-08-14 21:44 | CT ---
EXAMINATION TYPE: CT soft tissue neck w con DATE OF EXAM: 08/10/2023 COMPARISON: 02/18/2022 HISTORY: 57-year-old male R22.1 polyps/ having issues again TECHNIQUE: Contiguous axial scanning of the soft tissues of the neck performed with IV Contrast, silvio ent injected with 100ml mL of Isovue 300. Coronal/sagittal reconstructions performed. CT DLP: 645 mGycm Automated exposure control for dose reduction was used. FINDINGS: Visualized intracranial structures, orbits and globes, and mastoid air cells appear clear. There is r ightward nasal septal deviation. Mild lobulated mucosal thickening redemonstrated floors of the maxil alessandra sinuses. Nasopharynx is clear. The soft palate is elevated. There is mild hypertrophy of the bilateral palatine tonsils. A couple pu nctate calcifications left side measuring up to 3 mm suggest sequela of prior infection. Epiglottis and prevertebral soft tissues are satisfactory. Glottic and subglottic structures as well as the tracheal column and visualized upper lungs appear cl ear. The thyroid gland, submandibular glands, and parotid glands are satisfactory. Scattered nonenlarged lymph nodes are present on both sides of the neck. A prominent 1.2 cm left supr aclavicular lymph node remains unchanged from 2021. Otherwise, no cervical lymphadenopathy by size c riteria. Bones: Reversal of the normal cervical lordosis. Moderate degenerative disc disease. Posterior bulgin g disc C3-C4 may contribute to a moderate focal spinal canal stenosis. IMPRESSION: RIGHTWARD NASAL SEPTAL DEVIATION, MILD CHRONIC MAXILLARY SINUS DISEASE, AND SOME CALCIFICATIONS AT TH E LEFT PALATINE TONSIL SUGGESTING SEQUELA OF PRIOR INFECTION. NO ACUTE PROCESS OR LYMPHADENOPATHY SEE N.
== END | disposition home or self-care (01) ==
LOC: RADCTMAIN 13:41
PROVIDERS: ATTEND Otolaryngology
DX: R22.1 Localized swelling, mass and lump, neck (principal); J34.2 Deviated nasal septum; Z13.9 Encounter for screening, unspecified; J32.0 Chronic maxillary sinusitis
CPT/HCPCS: 82565; 84520; 70491; 36415; Q9967

== ENCOUNTER → 2023-10-06 | Outpatient (CLI) | payer BC ==
--- NOTE | 2023-10-06 14:36 | CT ---
EXAMINATION TYPE: CT abdomen pelvis w con CT DLP: 2095.2 mGycm, Automated exposure control for dose reduction was used. DATE OF EXAM: 10/06/2023 1:58 PM COMPARISON: CT abdomen pelvis 06/17/2015 CLINICAL INDICATION:Male, 57 years old with history of K42.9 UMBILICAL HERNIA WITHOUT OBSTRUCTION OR GANG; umbilical hernia TECHNIQUE: Standard CT of the abdomen and pelvis following the administration of 100 cc of Isovue 3 00 IV contrast material and oral contrast. Coronal and sagittal reformats were performed. FINDINGS: LOWER CHEST: Left lower lobe subsegmental atelectasis. ABDOMEN LIVER: Right hepatic lobe 2.1 cm cyst. Additional subcentimeter hypodense focus within the posterior right hepatic lobe which is too small to characterize but likely represents a cyst. Mildly enlarged l iver measuring 18.9 cm in CC dimension. GALLBLADDER AND BILE DUCTS: Unremarkable. PANCREAS: Unremarkable. SPLEEN: Unremarkable. ADRENAL GLANDS: Unremarkable. KIDNEYS AND URETERS: No evidence of hydronephrosis or renal calculus. The kidneys enhance symmetrical ly. Exophytic right posterior inferior pole 1.8 cm cyst. Additional subcentimeter hypodense focus wit hin the right mid kidney which is too small to characterize but likely represents a cyst. Contrast is demonstrated within both collecting systems on the delayed phase. PELVIS BLADDER: Unremarkable REPRODUCTIVE: Coarse calcifications of the prostate gland are identified. ABDOMEN & PELVIS STOMACH AND BOWEL: Stomach and duodenum are unremarkable. Descending colon diverticulosis without herbie dence for acute diverticulitis. The appendix is within normal limits. Enteric contrast reaches the mi d small bowel. No evidence of bowel obstruction. PERITONEUM: No evidence of pneumoperitoneum or free fluid. VASCULATURE: Mild atherosclerotic calcifications are present throughout the abdominal aorta and its b ranches. No evidence of aortic aneurysm. MUSCULOSKELETAL: No acute osseous abnormalities. Mild osteoarthritic changes of the right hip LYMPH NODES: No gross evidence for lymphadenopathy. SOFT TISSUE/ABDOMINAL WALL: Diastases rectus with a umbilical hernia containing fat and fat stranding . The defect measures 2.0 x 1.5 cm in TV by CC dimension. Small fat filled bilateral inguinal hernias . IMPRESSION: 1. Diastases rectus with a fat filled umbilical hernia demonstrating some inflammatory changes sugge sting strangulation of the mesenteric fat. 2. Colonic diverticulosis without evidence for acute diverticulitis.
== END | disposition home or self-care (01) ==
LOC: RADCTMAIN 11:59
PROVIDERS: ATTEND Internal Medicine
DX: K57.30 Diverticulosis of large intestine without perforation or abscess without bleeding (principal); K42.9 Umbilical hernia without obstruction or gangrene
CPT/HCPCS: 74177; Q9967

== ENCOUNTER → 2024-03-05 | Outpatient (CLI) | payer BC | END | disposition home or self-care (01) | LOC: LABWHC1 12:03 | PROVIDERS: ATTEND Internal Medicine Critical Care Medicine | DX: R06.09 Other forms of dyspnea (principal); G47.33 Obstructive sleep apnea (adult) (pediatric); Z86.16 Personal history of COVID-19 | CPT/HCPCS: 36415; 82784 ==

== ENCOUNTER → 2024-04-04 | Outpatient (CLI) | payer BC ==
[2024-04-04 11:11] LABS: ALT 26 U/L (10-49); AST 20 U/L (14-35); Albumin 4.4 g/dL (3.8-4.9); Alkaline Phosphatase 55 U/L (41-126); BUN/Creat Ratio 13.67 Ratio (12.00-20.00); Blood Urea Nitrogen 12.3 mg/dL (9.0-27.0); Calcium 9.3 mg/dL (8.7-10.3); Carbon Dioxide 26.4 mmol/L (21.6-31.8); Chloride 107 mmol/L (96-109); Chol/HDL Ratio 2.78 Ratio; Globulin 2.1 g/dL (1.6-3.3); Glucose 96 mg/dL (70-110); LDL Cholesterol,Calculated 57.8 mg/dL (0.0-131.0); Potassium 4.4 mmol/L (3.5-5.5); Sodium 144 mmol/L (135-145); Total Bilirubin 0.6 mg/dL (0.3-1.2); Total Protein 6.5 g/dL (6.2-8.2); VLDL Calculation 15.76 mg/dL (5.00-40.00)
== END | disposition home or self-care (01) ==
LOC: LABWHC1 07:24
PROVIDERS: ATTEND Internal Medicine Interventional Cardiology
DX: E78.2 Mixed hyperlipidemia (principal)
CPT/HCPCS: 36415; 80053; 80061

== ENCOUNTER 2024-06-19 07:13 | Day surgery (SDC) | payer BC ==
[2024-05-21 15:15] VITALS: BMI 40.1
[2024-06-19] MEDS: LACTATED RINGERS 1,000 ML IV SCH (07:50)
[2024-06-19 07:54] LABS: Glucose,Whole Blood 94 mg/dL (70-110)
[2024-06-19] MEDS: IV FLUID CONTINUATION 1,000 ML IV ONE (07:56)
[2024-06-19 07:57] VITALS: TEMP 97
[2024-06-19] MEDS ORDERED: PROPOFOL 10 MG/ML 20 ML VIAL IV ONE (08:30)
--- NOTE | 2024-06-19 08:32 | P.GSHP ---
History of Present Illness H&P Date: 06/19/24 Chief Complaint: GERD, screening 58-year-old male here for upper and lower endoscopy. Patient with some throat issues. Says he has had nodules on his vocal cords. Denies any significant heartburn. No dysphagia. Was started on Nexium. Has not noticed much difference with the medications. Patient's last colonoscopy about 10 years ago. No history of polyps. Does have a history of diverticulitis in the past. No problems with that recently. No family history of colon cancer. Past Medical History Past Medical History: Coronary Artery Disease (CAD), Hyperlipidemia, Hypertension Additional Past Medical History / Comment(s): diverticulitis, umbilical hernia, cardiomyopathy History of Any Multi-Drug Resistant Organisms: None Reported Past Surgical History: Orthopedic Surgery Additional Past Surgical History / Comment(s): CYST REMOVED FROM BACK. RT ROTATOR CUFF REPAIR. RT ROTATOR CUFF REPAIR WITH BICEP TENODESIS, past c olonoscopies, cardiac catheterization in the past-no interventions. Past Anesthesia/Blood Transfusion Reactions: No Reported Reaction Additional Past Anesthesia/Blood Transfusion Reaction / Comment(s): No history of blood transfusions Past Psychological History: No Psychological Hx Reported Smoking Status: Former smoker Past Alcohol Use History: Occasional Additional Past Alcohol Use History / Comment(s): Has a few alcholic drinks per week, QUIT SMOKING 2006, started smoking in 1987. Past Drug Use History: None Reported - Past Family History Mother Family Medical History: Cancer Additional Family Medical History / Comment(s): Lung cancer Sister(s) Family Medical History: Cancer Additional Family Medical History / Comment(s): CML-blood cancer Medications and Allergies Home Medications Medication Instructions Recorded Confirmed Type Cholecalciferol [Vitamin D3] 5,000 unit PO DAILY 07/23/16 06/19/24 History Rosuvastatin Calcium [Crestor] 5 mg PO DAILY 07/23/16 06/19/24 History Vitamin B Complex 1 each PO DAILY 07/23/16 06/19/24 History Aspirin [Adult Low Dose Aspirin EC] 81 mg PO DAILY 01/21/22 06/19/24 History Ibuprofen [Advil] 200 mg PO Q8HR PRN 01/21/22 06/19/24 History Metoprolol Tartrate [Lopressor] 25 mg PO BID 01/21/22 06/19/24 History Mv-Min/Vit C/Glut/Lysine/Hb124 1 tablet PO DAILY 01/21/22 06/19/24 History [Airborne Effervescent Tablet] Ascorbic Acid [Vitamin C] 1,000 mg PO DAILY 05/21/24 06/19/24 History Dapagliflozin Propanediol [Farxiga] 10 mg PO DAILY 05/21/24 06/19/24 History Sacubitril/Valsartan [Entresto 24 24 - 26 mg PO BID 05/21/24 06/19/24 History mg-26 mg Tablet] Spironolactone 25 mg PO DAILY 05/21/24 06/19/24 History Amoxicillin/Potassium Clav 1 tab PO Q12H 06/15/24 06/19/24 History [Amox-Clav 875-125 mg Tablet] Esomeprazole Magnesium [NexIUM] 20 mg PO DAILY 06/19/24 06/19/24 History Allergies Allergy/AdvReac Type Severity Reaction Status Date / Time No Known Allergies Allergy Verified 06/19/24 07:38 Surgical - Exam Vital Signs Temp Pulse Resp BP Pulse Ox 97.0 F L 72 16 117/76 95 06/19/24 07:45 06/19/24 07:45 06/19/24 07:45 06/19/24 07:45 06/19/24 07:45 Physical exam: General: Well-developed, well-nourished HEENT: Normocephalic, sclerae nonicteric Abdomen: Nontender, nondistended Extremities: No edema Neuro: Alert and oriented Assessment and Plan (1) Colon cancer screening Narrative/Plan: Will proceed with upper and lower endoscopy. Current Visit: Yes Status: Acute Code(s): Z12.11 - ENCOUNTER FOR SCREENING FOR MALIGNANT NEOPLASM OF COLON SNOMED Code(s): 966866565
--- NOTE | 2024-06-19 08:48 | P.PCN ---
Date of Procedure: 06/19/24 Procedure(s) Performed: PREOPERATIVE DIAGNOSIS: GERD, screening, history of diverticulosis POSTOPERATIVE DIAGNOSIS: Erosive gastritis, diverticulosis PROCEDURE: 1. EGD with biopsy 2. Colonoscopy ANESTHESIA: MAC SURGEON: Mateus Howell M.D. SPECIMENS: Body of stomach ENDOSCOPIC PROCEDURE: The patient was on the endoscopy table in the left decubitus position. The Olympus gastroscope was inserted into the oropharynx and passed under direct visualization to the region of the third portion of the duodenum. From that point the scope was slowly withdrawn inspecting all surfaces carefully. There were no neoplastic inflammatory or polypoid lesions throughout the duodenum. The pylorus was widely patent. The stomach was carefully inspected. There was erosive gastritis in the body and antrum of the stomach. Biopsies of that area took place. This was a patch of erythema with elevated mucosa measuring about 6 x 2 cm in size. Retroflexion revealed a normal hiatus. The esophagus was then carefully examined. There were no neoplastic inflammatory or polypoid lesions throughout the visualized esophagus. The patient was kept on the endoscopy table in the left decubitus position. The Olympus colonoscope was inserted into the anus and passed under direct visualization to the base of the cecum. The appendiceal orifice was visualized. From that point the scope was slowly withdrawn inspecting all surfaces carefully. There were no neoplastic inflammatory or polypoid lesions throughout the cecum, ascending, transverse, descending, sigmoid and rectum. There was left-sided diverticulosis noted. Digital rectal examination was normal. The patient was taken to the recovery room in stable condition per anesthesia guidelines. RECOMMENDATIONS: Await biopsy results. Continue antiacids. Resume diet. Repeat colonoscopy 10 years.
[2024-06-19 09:05] VITALS: BP 114/61; PULSE 62; RESP 16
== END 2024-06-19 09:35 | disposition home or self-care (01) ==
LOC: ORWHC2ENDO 07:13
PROVIDERS: ATTEND Surgery
DX: K29.00 Acute gastritis without bleeding (principal); K57.30 Diverticulosis of large intestine without perforation or abscess without bleeding; I25.10 Atherosclerotic heart disease of native coronary artery without angina pectoris; E78.5 Hyperlipidemia, unspecified; I10 Essential (primary) hypertension; Z87.891 Personal history of nicotine dependence; Z79.82 Long term (current) use of aspirin; Z79.84 Long term (current) use of oral hypoglycemic drugs
CPT/HCPCS: 88305; 88342; 45378; 43239; J2704

== ENCOUNTER → 2024-10-19 | Outpatient (CLI) | payer BC ==
[2024-10-19 10:39] LABS: ALT 33 U/L (10-49); AST 24 U/L (14-35); Albumin 4.5 g/dL (3.8-4.9); Albumin/Globulin Ratio 2.05 Ratio (1.60-3.17); Alkaline Phosphatase 62 U/L (41-126); BUN/Creat Ratio 16.56 Ratio (12.00-20.00); Blood Urea Nitrogen 14.9 mg/dL (9.0-27.0); Calcium 9.3 mg/dL (8.7-10.3); Carbon Dioxide 23.6 mmol/L (21.6-31.8); Chloride 107 mmol/L (96-109); Chol/HDL Ratio 3.04 Ratio; Globulin 2.2 g/dL (1.6-3.3); Glucose 91 mg/dL (70-110); LDL Cholesterol,Calculated 74.2 mg/dL (0.0-131.0); Potassium 4.1 mmol/L (3.5-5.5); Sodium 142 mmol/L (135-145); Total Bilirubin 0.6 mg/dL (0.3-1.2); Total Protein 6.7 g/dL (6.2-8.2); VLDL Calculation 19.74 mg/dL (5.00-40.00)
== END | disposition home or self-care (01) ==
LOC: LABWHC1 07:14
PROVIDERS: ATTEND Internal Medicine Interventional Cardiology
DX: E78.2 Mixed hyperlipidemia (principal)
CPT/HCPCS: 36415; 80053; 80061